=== PATIENT | male | born 1965 | race Caucasian/White ===

== ENCOUNTER 2016-09-14 16:32 | Emergency (ER) | payer BC ==
[~2016-09-14] VITALS: Ht 177.8 cm; Wt 68.3 kg
[~2016-09-14 16:32] MED LIST: ALPRAZOLAM0.25 MG PO; AMITRIPTYLINE H50 M1 NG; ELAVIL50 MG PO; KEPPRA1000 MG PO; KEPPRA500 MG PO; LEXAPRO5 MG PO; LOPRESSOR25 MG PO; METOPROLOL SUCC25 MG PO; MOTRIN800 MG PO; PRINIVIL10 MG PO; PRISTIQ50 MG PO; TYLENOL REGULA325 MG PO; XANAX0.25 MG PO; ZANTAC150 MG PO
[2016-09-14] MEDS ORDERED: THIAMINE HCL100 MG PO (20:07)
[2016-09-14] MEDS ORDERED: LIBRIUM25 MG PO (20:07)
[2016-09-14 20:17] VITALS: BP 114/83
== END 2016-09-14 20:18 | disposition home or self-care (01) ==
LOC: EME 16:32
DX: F10.10 Alcohol abuse, uncomplicated (principal); I10 Essential (primary) hypertension; F17.200 Nicotine dependence, unspecified, uncomplicated
CPT/HCPCS: 99281; 99284